=== PATIENT | female | born 1955 | race Hispanic/Latino ===

== ENCOUNTER 2020-05-17 14:03 | Outpatient (CLI) | payer MEDICARE ==
--- NOTE | 2020-05-17 15:31 | Mammography Report ---
DIGITAL DIAGNOSTIC MAMMOGRAM WITH CAD CONVENTIONAL, 05/17/2020 CLINICAL INFORMATION / INDICATION: PERSONAL HISTORY OF BREAST CA Z85.3 patient presents for follow-u p of probably benign calcifications in the left breast, and patient is currently due for bilateral ex amination. TECHNIQUE: Digital bilateral mammographic imaging was performed. Magnification views were obtained. This examination was interpreted with the benefit of Computer-aided Detection analysis. COMPARISON: Prior mammograms 12/15/2019, 03/04/2019, 01/29/2019, 01/23/2018, and 01/17/2017 FINDINGS: Breast Density: The breasts are heterogeneously dense, which may obscure small masses. No dominant mass, suspicious calcifications or architectural distortion in either breast. There is stable benign postsurgical change seen in the left breast. A few scattered benign-appearing calcifications in both breasts are not significantly changed compared with prior mammogram from 2017, compatible with a benign etiology. IMPRESSION: 1. No suspicious mammographic abnormality identified. 2. Scattered benign-appearing calcifications in both breasts are not significant change compared with prior mammogram in 2017 and are considered benign. Follow up recommendation: Routine yearly BI-RADS Category 2: Benign. A "normal" or negative report should not discourage follow up or biopsy of a clinically significant f inding. A written summary of these findings will be mailed to the patient. The patient will be entered into a mammography reporting system which will generate a reminder letter for the patient's next appointmen t at the appropriate interval. According to the [employer], yearly mammograms are recommended starting at age 40 and continuing as long as a woman is in good health. Breast MRI is recommended for women with an chris roximately 20-25% or greater lifetime risk of breast cancer, including women with a strong family his tory of breast or ovarian cancer and women who have been treated for Hodgkin's disease. Signer Name: An Freire MD Signed: 05/17/2020 3:27 PM Workstation Name: [id number]
== END 2020-05-17 14:04 | disposition home or self-care (01) ==
LOC: SPVWC 14:03
PROVIDERS: ATTEND Surgery
DX: R92.8 Other abnormal and inconclusive findings on diagnostic imaging of breast (principal); Z85.3 Personal history of malignant neoplasm of breast
CPT/HCPCS: 77066

== ENCOUNTER 2020-11-29 13:59 | Outpatient (CLI) | payer MEDICARE ==
--- NOTE | 2020-11-29 16:33 | Mammography Report ---
DIGITAL DIAGNOSTIC MAMMOGRAM WITH CAD CONVENTIONAL, 11/29/2020 CLINICAL INFORMATION / INDICATION: No new issues ABNORMAL MAMMO R92.8 TECHNIQUE: Digital left mammographic imaging was performed. This examination was interpreted with the benefit of Computer-aided Detection analysis. COMPARISON: May 17, 2020, December 15, 2019 and March 04, 2019 FINDINGS: Breast Density: The breasts are heterogeneously dense, which may obscure small masses. No dominant mass, suspicious calcifications or architectural distortion in the left breast. IMPRESSION: No mammographic evidence of malignancy. Follow up recommendation: Routine yearly BI-RADS Category 1: Negative. A "normal" or negative report should not discourage follow up or biopsy of a clinically significant f inding. A written summary of these findings will be mailed to the patient. The patient will be entered into a mammography reporting system which will generate a reminder letter for the patient's next appointmen t at the appropriate interval. According to the [employer], yearly mammograms are recommended starting at age 40 and continuing as long as a woman is in good health. Breast MRI is recommended for women with an chris roximately 20-25% or greater lifetime risk of breast cancer, including women with a strong family his tory of breast or ovarian cancer and women who have been treated for Hodgkin's disease. Signer Name: Yash Lynn DO Signed: 11/29/2020 4:28 PM Workstation Name: [id number]
== END 2020-11-29 14:00 | disposition home or self-care (01) ==
LOC: SPVWC 13:59
PROVIDERS: ATTEND Surgery
DX: R92.8 Other abnormal and inconclusive findings on diagnostic imaging of breast (principal)